=== PATIENT | female | born 1950 | race Caucasian/White ===

== ENCOUNTER → 2018-12-21 13:09 | Outpatient (CLI) | payer OTHER, MEDICARE, SELFPAY ==
--- NOTE | 2018-12-21 13:17 | RAD_ITS ---
STUDY: X-RAY - LUMBAR SPINE REASON FOR EXAM: Female, 68 years old. Chronic low back pain and right leg pain. TECHNIQUE: 5 view(s) of the lumbar spine were obtained including oblique views. COMPARISON: None FINDINGS: Normal lumbar lordosis. There is no substantial scoliosis. There is a normal alignment of the vertebrae. There is multilevel endplate spondylosis of the lumbar vertebrae. Mild disc space narrowing at the L3-L4 and L4-L5 levels. The soft tissue structures are unremarkable. RAD/L/S Spine Min 4 Views IMPRESSION: Degenerative changes of the spine, as detailed above. Electronically Signed: Nnamdi Miller MD at 12:45 EST , Service support ,
== END ==
LOC: RAD 13:14
PROVIDERS: Family Provider Family Medicine; PCP Family Medicine; Referring Provider Family Medicine; Visit Provider Family Medicine
DX: M54.5 Low back pain (principal); G89.29 Other chronic pain
CPT/HCPCS: 72110

== ENCOUNTER → 2021-11-21 | Outpatient (CLI) | payer MEDICARE, SELFPAY | END | disposition home or self-care (01) | PROVIDERS: PCP Family Medicine; Visit Provider Physician Assistant Medical | DX: Z20.822 Contact with and (suspected) exposure to COVID-19 (principal) | CPT/HCPCS: 87635; U0003; U0005 ==

== ENCOUNTER 2022-06-14 12:12 | Emergency (ER) | payer MEDICARE, SELFPAY ==
[2022-06-14 12:13] VITALS: BP 223/118; PULSE 101; RESP 16; TEMP 36.7; O2SAT 95; BMI 38.0
--- NOTE | 2022-06-14 12:38 | CT_ITS ---
STUDY: CT Abdomen And Pelvis W/O Contrast Injection 06/14/2022 2:18 PM REASON FOR EXAM: Female, 71 years old. ABDOMINAL PAIN abdominal pain Technologist Notes VAGINAL BLEEDING, PELVIC PAIN X 3 DAYS TECHNIQUE: Transaxial images were obtained without oral contrast, and without intravenous contrast. Individualized dose optimization techniques were used for this CT. COMPARISON: None. FINDINGS: There are atherosclerotic calcifications of visualized coronary arteries. The visualized portions of the heart are within normal limits. Unremarkable liver. Unremarkable gallbladder and extrahepatic biliary system. Unremarkable spleen. There is diffuse atrophy of the pancreas. There is a 77 x 62 x 68 mm, circumscribed, very low attenuation left adrenal mass (-105HU), consistent with an adrenal adenoma. Normal right adrenal gland. No acute findings of the right kidney. No acute findings of the left kidney. Unremarkable visualized stomach. Unremarkable small intestine. Unremarkable colon. The appendix is visualized and appears unremarkable. There are calcifications of the abdominal aorta. This is consistent for atherosclerotic disease. There is no abdominal aortic aneurysm. Unremarkable inferior vena cava. Subcentimeter mesenteric lymph nodes. Unremarkable urinary bladder. Normal visualized uterus. There is an umbilical hernia containing fat. Unremarkable osseous structures. CT/Abdomen/Pelvis without Cont IMPRESSION: (NOT LISTED IN ORDER OF SIGNIFICANCE) There is a 77 x 62 x 68 mm, circumscribed, very low attenuation left adrenal mass (-105HU), consistent with an adrenal adenoma. However, the lesion is very large. ACR White Paper guidelines (Katia et al. JACR 2017; 14(8):9976-5563) suggest the following. consider PET-CT. Also consider biochemical assays to determine functional status and exclude pheochromocytoma. Other findings as above. Electronically Signed: Colt Lowe MD at 14:41 EDT ,
--- NOTE | 2022-06-14 12:51 | ED.VIS.FEGU ---
HPI HPI - Female History of Present Illness Chief Complaint: Vag Bleeding Detail of Chief Complaint: Vaginal bleeding x3 days Informant: patient Narrative Narrative: Patient presents to the emergency department complaint of vaginal bleeding that started 3 days ago. Patient also states that she is having blood in the urine. Patient is passing some clots. She complains of right lower abdomen pain. Patient states that she saw her primary care physician because she thought she had some sciatica issue going on so she was started on meloxicam last week. Patient denies fevers or chills. She denies dysuria. Patient tells me that years ago she had a polyp removed from her cervix. Prior similar symptoms: No PFSH PFSH Medical History (Updated 06/14/22 @ 16:[address] Milla Mejia, DO) Diabetes mellitus Hypercholesteremia Hypertension Sciatica Home Medications acetaminophen 325 mg tablet (Tylenol) 650 mg PO Q6H PRN PRN Pain ##0 10/24/15 [Rx Last Taken Unknown] atorvastatin 10 mg tablet 1 tab PO DAILY 06/14/22 [History Last Taken Unknown] glimepiride 1 mg tablet 0.5 tab PO DAILY 06/14/22 [History Last Taken Unknown] meloxicam 7.5 mg tablet 1 tab PO DAILY 06/14/22 [History Last Taken Unknown] quinapril 40 mg tablet 1 tab PO DAILY 06/14/22 [History Last Taken Unknown] Allergy/AdvReac Type Severity Reaction Status Date / Time meperidine HCl [From Demerol] Allergy Rash Verified 06/14/22 12:15 Social History Smoking Status: Never smoker ROS ROS ED Review of Systems ROS Unobtainable: other Constitutional Constitutional ED: Reports lethargy; Denies chills, fever(s), sweats or weight loss Eyes Eyes: Denies blurry vision, change in vision or diplopia ENT ENT ED: Denies rhinorrhea or sore throat Cardiovascular Cardiovascular: Reports chest pain and racing heartbeat; Denies orthopnea Respiratory/Chest Respiratory/Chest: Reports dyspnea and dyspnea on exertion; Denies cough, orthopnea or sputum Gastrointestinal Gastrointestinal: Reports abdominal pain; Denies diarrhea, nausea or vomiting Genitourinary Genitourinary ED: Reports hematuria and other Details: Vaginal bleeding ; Denies dysuria or urinary frequency Musculoskeletal Musculoskeletal: Denies arthralgias, back pain, myalgias or neck pain Integumentary Denies abscess, Abrasions or rash Neurologic Neurologic: Denies headache(s) or weakness Psychiatric Psychiatric: Denies anxiety, depression or suicidal thoughts Endocrine Endocrinology: Denies polydipsia, polyphagia or polyuria Hematologic/Lymphatic Hematologic/Lymphatic: Denies easy bleeding, easy bruising or lymphadenopathy Allergic/Immunologic Allergic/Immunologic ED: Denies mouth swelling, tongue swelling or urticaria EXAM Physical Exam Const Vital Signs: 06/14/22 12:13 06/14/22 13:18 06/14/22 14:00 Temperature 98.1 F Temperature Source Temporal Pulse Rate 101 H 96 97 Pulse Rate [Lying] Pulse Rate [Sitting (for 1 minute prior to obtaining)] Pulse Rate [Standing (for 1 minute prior to obtaining)] Respiratory Rate 16 Blood Pressure 223/118 H 196/116 H 191/116 H Blood Pressure [Lying] Blood Pressure [Sitting (for 1 minute prior to obtaining)] Blood Pressure [Standing (for 1 minute prior to obtaining)] Blood Pressure Mean 153 142 141 Blood Pressure Mean [Lying] Blood Pressure Mean [Sitting (for 1 minute prior to obtaining)] Blood Pressure Mean [Standing (for 1 minute prior to obtaining)] Pulse Ox 95 Oxygen Delivery Method Room Air 06/14/22 15:03 Temperature Temperature Source Pulse Rate Pulse Rate [Lying] 97 Pulse Rate [Sitting (for 1 minute prior to obtaining)] 98 Pulse Rate [Standing (for 1 minute prior to obtaining)] 106 H Respiratory Rate Blood Pressure Blood Pressure [Lying] 190/100 H Blood Pressure [Sitting (for 1 minute prior to obtaining)] 197/106 H Blood Pressure [Standing (for 1 minute prior to obtaining)] 189/118 H Blood Pressure Mean Blood Pressure Mean [Lying] 130 Blood Pressure Mean [Sitting (for 1 minute prior to obtaining)] 136 Blood Pressure Mean [Standing (for 1 minute prior to obtaining)] 141 Pulse Ox Oxygen Delivery Method Positive well nourished and well developed General Appearance ED: well developed and NAD HEENT Reports TM's clear and moist mucous membranes normocephalic and atraumatic; Negative for trauma or tenderness Tympanic Membrane ED: Yes TM's clear Eyes PERRL and EOMs intact bilaterally General Eye ED: Negative for pale conjunctiva or scleral icterus Neck no lymphadenopathy, supple and no JVD General: Negative for tenderness Chest Wall inspection of chest normal and palpation of chest normal Chest: Negative for tenderness Resp normal respiratory effort and clear to auscultation bilaterally Effort and Inspection: Negative for respiratory distress or pain with movement Auscultation: Negative for rhonchi, wheezes or diminished lung sounds Cardio regular rate, regular rhythm, S1 normal heart sound, S2 normal heart sound and no murmurs Peripheral Pulses: pulses 2+ throughout GI normal to inspection, nondistended, normoactive bowel sounds, soft to palpation, non-tender, non-distended and no masses Back/Spine no CVA tenderness and no thoracic nor lumbar tenderness Extremity normal to inspection General Extremety ED: Negative for edema General Extremity: Negative for edema Neuro oriented x3, CN's II-XII intact bilaterally, no sensory deficits noted and gait normal Sensorium / Orientation: awake, alert, oriented to person, oriented to place and oriented to time Motor Exam: strength 5/5 throughout and strength abnormal Psych mental status grossly normal Skin no rashes or lesions noted and no wounds MDM MDM MDM Narrative Medical decision making narrative: The line established on arrival. Lab work-up unremarkable. CT scan of the abdomen pelvis obtained was read by radiology as 77 x 62 x 68 mm circumscribed low-attenuation left adrenal mass consistent with adrenal adenoma however lesion is very large. It was recommended patient have PET scan versus also biochemical assays to determine functional status and exclude pheochromocytoma. Patient does have elevated blood pressures here in the department and apparently 2 days ago her blood pressure was in the 160 systolic. It is unclear if she has some whitecoat hypertension as she is also been dealing with pain in her back and also recently started meloxicam for pain. I did discuss case with [employer] after obtaining a pelvic ultrasound that showed a possible endometrial mass and a fibroid uterus. Dr. Sal will see patient in the emergency department to discuss neck steps and outpatient biopsy. I will attempt to contact patient's primary care physician as well regarding the abnormal findings on CT of left adrenal adenoma rule out pheochromocytoma. We were unable to get a hold of Dr. Meeks and I did discuss case with oncology on-call Dr. Zendejas who recommended the patient follow-up with the primary care physician regarding these findings to have further testing performed or referral to endocrinology but did not feel this was an emergent finding. Patient is comfortable with plan at this point and she will monitor her blood pressures at home. Patient advised to return if chest pain, shortness of breath, persistent heavy bleeding, or condition should worsen anyway. Lab Data Attestation: I reviewed the patient's lab results. Labs: Laboratory Results - last 24 hr 06/14/22 06/14/22 06/14/22 13:07 13:07 13:15 WBC 8.6 RBC 5.36 Hgb 14.7 Hct 46.7 MCV 87.1 MCH 27.4 MCHC 31.5 L RDW Std Deviation 45.1 H RDW Coeff of [place] 14.2 Plt Count 314 MPV 9.6 Immature Gran % (Auto) 0.300 Neut % (Auto) 57.8 Lymph % (Auto) 31.9 [place] % (Auto) 8.6 Eos % (Auto) 0.8 Baso % (Auto) 0.6 Absolute Neuts (auto) 5.0 Absolute Lymphs (auto) 2.76 Nucleated RBC % 0 Sodium 143 Potassium 3.4 L Chloride 106 Carbon Dioxide 30.0 Anion Gap 7 BUN 12 Creatinine 0.73 Estim Creat Clear Calc 41.99 Est GFR (MDRD) Af Amer 102 Est GFR (MDRD) Non-Af 84 BUN/Creatinine Ratio 16.5 Glucose 130 H Calcium 9.6 Urine Color Red Urine Clarity Cloudy Urine pH 7.0 Ur Specific [place] 1.010 Urine Protein 500 H Urine Glucose (UA) Normal Urine Ketones 5 H Urine Occult Blood 250 H Urine Nitrite Negative Urine Bilirubin Negative Urine Urobilinogen Normal Ur Leukocyte Esterase 25 H Urine RBC 0-5 SEEN Urine WBC 0 SEEN Ur Squamous Epith Cells 0 SEEN Urine Bacteria 0 SEEN Urine Mucus 0 SEEN Blood Type Antibody Screen 06/14/22 13:42 WBC RBC Hgb Hct MCV MCH MCHC RDW Std Deviation RDW Coeff of [place]ita Plt Count MPV Immature Gran % (Auto) Neut % (Auto) Lymph % (Auto) [place] % (Auto) Eos % (Auto) Baso % (Auto) Absolute Neuts (auto) Absolute Lymphs (auto) Nucleated RBC % Sodium Potassium Chloride Carbon Dioxide Anion Gap BUN Creatinine Estim Creat Clear Calc Est GFR (MDRD) Af Amer Est GFR (MDRD) Non-Af BUN/Creatinine Ratio Glucose Calcium Urine Color Urine Clarity Urine pH Ur Specific [place] Urine Protein Urine Glucose (UA) Urine Ketones Urine Occult Blood Urine Nitrite Urine Bilirubin Urine Urobilinogen Ur Leukocyte Esterase Urine RBC Urine WBC Ur Squamous Epith Cells Urine Bacteria Urine Mucus Blood Type A POSITIVE Antibody Screen NEGATIVE Radiography Diagnostic Testing: Clinical Impression(s) from Imaging Studies Abdomen/Pelvis CT 06/14/22 12:38 IMPRESSION: (NOT LISTED IN ORDER OF SIGNIFICANCE) There is a 77 x 62 x 68 mm, circumscribed, very low attenuation left adrenal mass (-105HU), consistent with an adrenal adenoma. However, the lesion is very large. ACR White Paper guidelines (Katia et al. JACR 2017; 14(8):6309-3269) suggest the following. consider PET-CT. Also consider biochemical assays to determine functional status and exclude pheochromocytoma. Other findings as above. Electronically Signed: Colt Lowe MD at 14:41 EDT , ADDENDUM: 06/14/22 1532 IMPRESSION: undefined Transvaginal US 06/14/22 13:29 IMPRESSION: At the level of the endometrium, there is a mass measuring 36 x 40 mm. This may be an sub endometrial fibroid versus endometrial mass. Direct visualization is recommended. Fibroid uterus. Electronically Signed: Colt Lowe MD at 15:24 EDT , Discharge Plan Triage Chief Complaint: Vag Bleeding ED Provider: Milla Mejia Dx/Rx/DC Orders Clinical Impression: Abnormal vaginal bleeding, Fibroid uterus, Endometrial mass, Adrenal adenoma, Hypertension Instructions: ED Dysfunctional Uterine Bleeding, ED Hypertension, Established, ED Tumor, Uncertain Cause, ED Uterine Fibroids Prescriptions: No Action acetaminophen [Tylenol] 325 MG tablet 650 mg PO Q6H PRN PRN (Reason: Pain) Qty: 0 0RF atorvastatin 10 mg tablet 1 tab PO DAILY Label Comments: TAKE 1 TABLET BY MOUTH EVERY DAY quinapril 40 mg tablet 1 tab PO DAILY Label Comments: TAKE 1 TABLET BY MOUTH DAILY glimepiride 1 mg tablet 0.5 tab PO DAILY Label Comments: TAKE 1 TABLET BY MOUTH EVERY DAY IN THE MORNING meloxicam 7.5 mg tablet 1 tab PO DAILY Label Comments: TAKE 1 TABLET BY MOUTH IN THE MORNING FOR 7 DAYS. Primary Care Provider: Maykel Vegas Referrals: Maykel Vegas DO [Primary Care Provider] - 3-5 Days Zoila Sal DO [STAFF PHYSICIAN] - 3-5 Days Disposition Disposition: Home, Self Care
[2022-06-14 13:17] LABS: Absolute Lymphocyte Count 2.76 X10^3/uL (0.83-4.51); Basophil# 0.05 X10^3/uL; Basophil% 0.6 % (0-1); Eosinophil# 0.07 X10^3/uL; Eosinophils% 0.8 % (0-5); Hematocrit 46.7 % (37-47); Hemoglobin 14.7 g/dL (12.0-15.0); Lymphocyte # 2.76 X10^3/ul (0.83-4.51); Lymphocyte % 31.9 % (19-41); Mean Corp Hgb Conc 31.5 g/dL (32-36); Mean Corpuscular Hgb 27.4 pg (27.0-32.0); Mean Corpuscular Volume 87.1 fL (81-99); Mean Platelet Vol. 9.6 fl (6.2-12.0); Monocyte# 0.74 X10^3/uL; Monocyte% 8.6 % (0-10); NRBC Flagged by Analyzer 0 % (0-5); Neutrophil # 4.99 X10^3/uL (2.7-7.7); Neutrophil % 57.8 % (47-70); Platelet Count 314 K/mm3 (150-450); RBC Distribution Width CV 14.2 % (11.6-14.6); RBC Distribution Width SD 45.1 fl (35.1-43.9); Red Blood Count 5.36 M/mm3 (4.2-5.4); White Blood Count 8.6 K/mm3 (4.4-11.0)
[2022-06-14 13:18] VITALS: BP 196/116; PULSE 96
[2022-06-14 13:19] LABS: Bacteria 0 SEEN /hpf (None Seen); Mucous, Urine 0 SEEN /hpf (<or=2+); Squamous Epithelial Cells - UA 0 SEEN /hpf (5-10); White Blood Cells 0 SEEN /hpf (0-5)
[2022-06-14 13:24] LABS: Color, Urine Red (Yellow); Glucose, Dipstick Normal (Normal); Ketone-Dipstick 5 mg/dl (Negative); Leukocyte Esterase-Dipstick 25 /ul (Negative); Nitrite-Dipstick Negative (Negative); Occult Blood-Urine 250 /ul (Negative); Protein-Dipstick 500 mg/dl (Negative); Urine Bilirubin Dipstick Negative (Negative); Urine Clarity Cloudy (Clear); Urine Urobilinogen Normal (Normal)
[2022-06-14 13:28] LABS: Anion Gap 7 (5-15); BUN 12 mg/dL (7-18); BUN/Creat Ratio 16.5 RATIO (10-20); Calcium,Total 9.6 mg/dL (8.5-10.1); Chloride 106 mmol/L (98-107); Creatinine, Serum 0.73 mg/dL (0.55-1.02); EST Glomerular Filtration Rate 84 mL/min (>60); Est Glom Filt Rate - Afr Amer 102 mL/min (>60); Estimated Creatinine Clearance 41.99 ml/min; Glucose 130 mg/dL (74-106); Potassium 3.4 mmol/L (3.5-5.1); Sodium Level 143 mmol/L (136-145)
[2022-06-14 13:29] LABS: Red Blood Cells-Urine 0-5 SEEN /hpf (0-5)
--- NOTE | 2022-06-14 13:29 | US_ITS ---
STUDY: ULTRASOUND OF THE FEMALE PELVIS - COMPLETE REASON FOR EXAM: Female, 71 years old. vaginal bleeding, pelvic pain -- POST MENOPAUSAL BLEEDING X 3 DAYS TECHNIQUE: Endovaginal. Transvaginal US was obtained to better visualized the ovaries. COMPARISON: CT done earlier FINDINGS: The uterus is anteverted and is in a midline position. The uterus measures 9.2x 6.3 cm. Normal uterine cervix. At the level of the endometrium, there is a mass measuring 36 x 40 mm. This may be an sub endometrial fibroid versus endometrial mass. There is no demonstrated endometrial mass. There is demonstrated fibroids. Heterogeneous fibroid measures 21 mm. I.U.D. - The patient does not have an I.U.D. There is nonvisualization of the right ovary due to overlying bowel gas. There is nonvisualization of the left ovary due to overlying bowel gas. There is no fluid in the cul-de-sac. US/Transvaginal Non- IMPRESSION: At the level of the endometrium, there is a mass measuring 36 x 40 mm. This may be an sub endometrial fibroid versus endometrial mass. Direct visualization is recommended. Fibroid uterus. Electronically Signed: Colt Lowe MD at 15:24 EDT ,
[2022-06-14 14:00] VITALS: BP 191/116; PULSE 97
[2022-06-14 15:03] VITALS: BP 189/118; BP 190/100; BP 197/106; PULSE 106; PULSE 97; PULSE 98
[2022-06-14] MEDS: Acetaminophen 325 MG Tablet 650 MG PO (15:08)
--- NOTE | 2022-06-14 16:22 | CON.PCM_ITS ---
Assessment & Plan Assessment/Plan (1) Abnormal vaginal bleeding: PLAN: - Bleeding minimal currently on exam and patient reports it has lessened since being here. Hgb WNL. Discussed bleeding pre cautions and reasons to call with vaginal bleeding. No indication for progesterone treatment at this time for bleeding. (2) Endometrial mass: PLAN: - Discussed possible benign fibroid, hyperplasia, or uterine cancer. D iscussed need for hysteroscopy to assess cavity and endometrial sampling. Will need follow up in the office for this. Discussed possible in office Endosee with EMB or hysteroscopy, fibroid removal, D&C in the OR. Questions answered. HPI Consult Data Date of Consult: 06/14/22 HPI Narrative Reason for Consultation: vaginal bleeding HPI Narrative: DEANDRA GARZA, is a 71 F who presents pain. She states she went through [employer] around age 57. She states she would have bleeding with intercourse ever since going through menopause. Over the last 5 days she experienced heavier vaginal bleeding. She reports passing clots at home. She states since being here the vaginal bleeding seems to have lightened. She said she was never changing a pad every 1-2 hours at home. She has some right lower quadrant discomfort. Otherwise denies abdominal pain or cramping. She reports a known history of uterine fibroids. No prior pelvic surgery. Not currently established with a health type technician. History of 5 prior vaginal deliveries. [facility] Medical History (Updated 06/14/22 @ 16:[address] Milla Mejia, ) Diabetes mellitus Hypercholesteremia Hypertension Sciatica Home Medications acetaminophen 325 mg tablet (Tylenol) 650 mg PO Q6H PRN PRN Pain ##0 10/24/15 [Rx Last Taken Unknown] atorvastatin 10 mg tablet 1 tab PO DAILY 06/14/22 [History Last Taken Unknown] glimepiride 1 mg tablet 0.5 tab PO DAILY 06/14/22 [History Last Taken Unknown] meloxicam 7.5 mg tablet 1 tab PO DAILY 06/14/22 [History Last Taken Unknown] quinapril 40 mg tablet 1 tab PO DAILY 06/14/22 [History Last Taken Unknown] Allergy/AdvReac Type Severity Reaction Status Date / Time meperidine HCl [From Demerol] Allergy Rash Verified 06/14/22 12:15 Social History Smoking Status: Never smoker Physical Exam Const alert General Appearance: comfortable HEENT normocephalic Resp normal respiratory effort GI soft to palpation, non-tender and non-distended Lab / Micro Data Result Diagrams: 06/14/22 13:07 06/14/22 13:07 Labs: Laboratory Results - last 24 hr 06/14/22 13:07: WBC 8.6, RBC 5.36, Hgb 14.7, Hct 46.7, MCV 87.1, MCH 27.4, MCHC 31.5 L, RDW Std Deviation 45.1 H, RDW Coeff of [place] 14.2, Plt Count 314, MPV 9.6, Immature Gran % (Auto) 0.300, Neut % (Auto) 57.8, Lymph % (Auto) 31.9, [place] % (Auto) 8.6, Eos % (Auto) 0.8, Baso % (Auto) 0.6, Absolute Neuts (auto) 5.0, Absolute Lymphs (auto) 2.76, Nucleated RBC % 0 06/14/22 13:07: Sodium 143, Potassium 3.4 L, Chloride 106, Carbon Dioxide 30.0, Anion Gap 7, BUN 12, Creatinine 0.73, Estim Creat Clear Calc 41.99, Est GFR (MDRD) Af Amer 102, Est GFR (MDRD) Non-Af 84, BUN/Creatinine Ratio 16.5, Glucose 130 H, Calcium 9.6 06/14/22 13:15: Urine Color Red, Urine Clarity Cloudy, Urine pH 7.0, Ur Specific [place] 1.010, Urine Protein 500 H, Urine Glucose (UA) Normal, Urine Ketones 5 H , Urine Occult Blood 250 H, Urine Nitrite Negative, Urine Bilirubin Negative, Urine Urobilinogen Normal, Ur Leukocyte Esterase 25 H, Urine RBC 0-5 SEEN, Urine WBC 0 SEEN, Ur Squamous Epith Cells 0 SEEN, Urine Bacteria 0 SEEN, Urine Mucus 0 SEEN 06/14/22 13:42: Blood Type A POSITIVE, Antibody Screen NEGATIVE Radiology Impression Abdomen/Pelvis CT 06/14/22 12:38 IMPRESSION: (NOT LISTED IN ORDER OF SIGNIFICANCE) There is a 77 x 62 x 68 mm, circumscribed, very low attenuation left adrenal mass (-105HU), consistent with an adrenal adenoma. However, the lesion is very large. ACR White Paper guidelines (Katia et al. JACR 2017; 14(8):3308-7431) suggest the following. consider PET-CT. Also consider biochemical assays to determine functional status and exclude pheochromocytoma. Other findings as above. Electronically Signed: Colt Lowe MD at 14:41 EDT , ADDENDUM: 06/14/22 1532 IMPRESSION: undefined Transvaginal US 06/14/22 13:29 IMPRESSION: At the level of the endometrium, there is a mass measuring 36 x 40 mm. This may be an sub endometrial fibroid versus endometrial mass. Direct visualization is recommended. Fibroid uterus. Electronically Signed: Colt Lowe MD at 15:24 EDT ,
[2022-06-14 16:23] VITALS: BP 194/110; PULSE 98; RESP 18; O2SAT 96
== END 2022-06-14 16:29 | disposition home or self-care (01) ==
PROVIDERS: Emergency Provider Emergency Medicine; PCP Family Medicine; Visit Provider Emergency Medicine
DX: N93.9 Abnormal uterine and vaginal bleeding, unspecified (principal); E11.9 Type 2 diabetes mellitus without complications; D25.9 Leiomyoma of uterus, unspecified; D35.00 Benign neoplasm of unspecified adrenal gland; R19.09 Other intra-abdominal and pelvic swelling, mass and lump; E78.00 Pure hypercholesterolemia, unspecified; I10 Essential (primary) hypertension; Z79.84 Long term (current) use of oral hypoglycemic drugs; Z79.899 Other long term (current) drug therapy
CPT/HCPCS: 74176; 76830; 80048; 81001; 85025; 86850; 86900; 86901; 99285; A4216

== ENCOUNTER 2022-09-30 11:58 | Emergency (ER) | payer MEDICARE, SELFPAY ==
[2022-09-30 12:00] VITALS: BP 96/77; PULSE 115; RESP 27; TEMP 35.7; O2SAT 95; BMI 36.9
--- NOTE | 2022-09-30 12:23 | EX.ED.DYSGE1 ---
HPI History of Present Illness Chief Complaint: Chest Pain Narrative Narrative: Patient presents with generalized weakness, nausea, feeling lightheaded. She is status postchemotherapy for uterine cancer. She has no fever chills no cough or congestion she says it is difficult to take a deep breath but she does not have any chest pain. Sent in by her oncologist. [facility] Medical History Diabetes mellitus Hypercholesteremia Hypertension Sciatica Uterine cancer Home Medications acetaminophen 325 mg tablet (Tylenol) 650 mg PO Q6H PRN PRN Pain ##0 10/24/15 [Rx Last Taken Unknown] atorvastatin 10 mg tablet 1 tab PO DAILY 06/14/22 [History Last Taken Unknown] glimepiride 1 mg tablet 0.5 tab PO DAILY 06/14/22 [History Last Taken Unknown] meloxicam 7.5 mg tablet 1 tab PO DAILY 06/14/22 [History Last Taken Unknown] quinapril 40 mg tablet 1 tab PO DAILY 06/14/22 [History Last Taken Unknown] ondansetron 4 mg disintegrating tablet 4 mg PO Q8H #30 tabs 09/30/22 [Rx Last Taken Unknown] Allergy/AdvReac Type Severity Reaction Status Date / Time meperidine HCl [From Demerol] Allergy Rash Verified 06/14/22 12:15 Surgical History H/O: hysterectomy Social History Smoking Status: Never smoker ROS ROS ED ROS Narrative Past medical history: Reviewed, includes cancer postchemotherapy. Medications: Reviewed Social history: Noncontributory Review of systems: All systems negative except as indicated General: No fever. Generalized weakness Eyes: No visual changes ENT: No upper airway congestion, normal voice Neck: No neck pain Cardiovascular: No chest pain Respiratory: Difficult taking deep breath. No cough Gastrointestinal: No abdominal pain she does have nausea and vomiting. Genitourinary: No dysuria Musculoskeletal: Some myalgias. Skin: No rash Neurological: No memory loss, confusion or any focal weakness Psych: No recent behavioral changes Hematologic: No easy bleeding or easy bruising EXAM Physical Exam Narrative Exam Narrative: Physical exam General: Patient appears relatively comfortable. She appears chronically ill but does not appear in significant distress Head: Normocephalic, Atraumatic Eyes: Conjunctiva not pale ENT: Dry mucous membranes Neck: Supple, Nontender, No lymphadenopathy Cardiovascular: Regular tachycardia Respiratory: No distress, CTA bilaterally Abdomen: Soft, Nontender, Nondistended Back: Nontender, Normal Inspection. Negative for: CVA tenderness Extremities: Nontender, No edema Skin: Normal color, No rash Neurological: Alert, Normal Strength, Normal Sensation Psychological: Normal affect Const Vital Signs: 09/30/22 12:00 Temperature 96.2 F L Temperature Source Temporal Pulse Rate 115 H Respiratory Rate 27 H Blood Pressure 96/77 Blood Pressure Mean 83 Pulse Ox 95 Oxygen Delivery Method Room Air MDM MDM MDM Narrative Medical decision making narrative: Patient's work-up is unremarkable she was given the IV fluids and significantly improved. I believe she can be safely discharged home. I will discharge with Zofran since she only has Phenergan at home. Lab Data Labs: Laboratory Results - last 24 hr 09/30/22 09/30/22 12:40 12:40 WBC 7.1 RBC 5.69 H Hgb 15.7 H Hct 48.0 H MCV 84.4 MCH 27.6 MCHC 32.7 RDW Std Deviation 41.0 RDW Coeff of Elenita 13.3 Plt Count 304 MPV 10.5 Immature Gran % (Auto) 0.600 Neut % (Auto) 64.9 Lymph % (Auto) 30.0 Reynolds % (Auto) 1.3 Eos % (Auto) 2.8 Baso % (Auto) 0.4 Absolute Neuts (auto) 4.6 Absolute Lymphs (auto) 2.14 Nucleated RBC % 0.4 Sodium 135 L Potassium 3.2 L Chloride 99 Carbon Dioxide 27.0 Anion Gap 9 BUN 35 H Creatinine 1.11 H Estim Creat Clear Calc 37.30 Est GFR (MDRD) Af Amer 62 Est GFR (MDRD) Non-Af 52 L BUN/Creatinine Ratio 31.5 H Glucose 186 H Calcium 9.5 Total Bilirubin 0.90 AST 32 ALT 64 H Alkaline Phosphatase 84 Troponin I High Sens 7 Total Protein 7.8 Albumin 3.4 Globulin 4.4 H Albumin/Globulin Ratio 0.8 L Radiography Diagnostic Testing: Clinical Impression(s) from Imaging Studies Chest CTA 09/30/22 12:25 IMPRESSION: No evidence of pulmonary embolism. No pulmonary consolidation is seen. Electronically Signed: Nnamdi Miller MD at 14:06 EST , Discharge Plan Triage Chief Complaint: Chest Pain ED Provider: Watson Shine Dx/Rx/DC Orders Clinical Impression: Post chemo evaluation, Dehydration Instructions: Dehydration Prescriptions: New ondansetron 4 mg tablet,disintegrating 4 mg PO Q8H Qty: 30 0RF No Action acetaminophen [Tylenol] 325 MG tablet 650 mg PO Q6H PRN PRN (Reason: Pain) Qty: 0 0RF atorvastatin 10 mg tablet 1 tab PO DAILY Label Comments: TAKE 1 TABLET BY MOUTH EVERY DAY quinapril 40 mg tablet 1 tab PO DAILY Label Comments: TAKE 1 TABLET BY MOUTH DAILY glimepiride 1 mg tablet 0.5 tab PO DAILY Label Comments: TAKE 1 TABLET BY MOUTH EVERY DAY IN THE MORNING meloxicam 7.5 mg tablet 1 tab PO DAILY Label Comments: TAKE 1 TABLET BY MOUTH IN THE MORNING FOR 7 DAYS. Primary Care Provider: Maykel Vegas Referrals: Maykel Vegas DO [Primary Care Provider] - 3-5 Days Disposition Disposition: Home, Self Care
--- NOTE | 2022-09-30 12:25 | CT_ITS ---
STUDY: CTA CHEST REASON FOR EXAM: Female, 72 years old. Chest pain and shortness of breath. History of uterine cancer. Chemotherapy. RADIATION DOSAGE (If Supplied By Facility): CTDIvol = ( 11.24 ) mGy, DLP = ( 404.58 ) mGycm TECHNIQUE: The examination was performed with the intravenous administration of IV 100mL Isovue-370. Post-processing of the angiographic images was performed, with multiplanar reformation and 3D reconstruction. Individualized dose optimization techniques were used for this CT. COMPARISON: None. FINDINGS: Normal enhancement of the main pulmonary artery and right and left pulmonary arteries. Normal enhancement of the bilateral peripheral pulmonary arteries. There is no demonstrated pulmonary embolism. Normal thoracic aorta and visualized great vessels. There is no demonstrated aortic dissection. Normal heart and pericardium. No coronary artery calcification is seen. Normal mediastinum. Normal hilar regions. Normal visualized trachea and bronchi. The lungs are well expanded. Normal pulmonary parenchyma. Normal pleura. Normal chest wall structures. There are degenerative changes of thoracic spine. Fatty infiltration of the liver. CT/CTA Chest W/WO Contrast IMPRESSION: No evidence of pulmonary embolism. No pulmonary consolidation is seen. Electronically Signed: Nnamdi Miller MD at 14:06 EST ,
[2022-09-30] MEDS: 0.9% Normal Saline 1,000 ML 1000 ML IV (12:36)
[2022-09-30 12:55] LABS: Absolute Lymphocyte Count 2.14 X10^3/uL (0.83-4.51); Absolute Neutrophil Count 4.6 X10^3/uL (2.0-7.7); Basophil# 0.03 X10^3/uL; Basophil% 0.4 % (0-1); Eosinophils% 2.8 % (0-5); Hemoglobin 15.7 g/dL (12.0-15.0); Lymphocyte # 2.14 X10^3/ul (0.83-4.51); Mean Corp Hgb Conc 32.7 g/dL (32-36); Mean Corpuscular Hgb 27.6 pg (27.0-32.0); Mean Corpuscular Volume 84.4 fL (81-99); Mean Platelet Vol. 10.5 fl (6.2-12.0); Monocyte# 0.09 X10^3/uL; Monocyte% 1.3 % (0-10); NRBC Flagged by Analyzer 0.4 % (0-5); Neutrophil # 4.64 X10^3/uL (2.7-7.7); Neutrophil % 64.9 % (47-70); Platelet Count 304 K/mm3 (150-450); RBC Distribution Width CV 13.3 % (11.6-14.6); Red Blood Count 5.69 M/mm3 (4.2-5.4); White Blood Count 7.1 K/mm3 (4.4-11.0)
[2022-09-30 13:09] LABS: ALB/GLOB Ratio 0.8 RATIO (0.9-2.4); AST(SGOT) 32 U/L (15-37); Alanine Aminotransfer ALT/SGPT 64 U/L (13-56); Albumin, Serum 3.4 g/dL (3.2-5.0); Alkaline Phosphatase 84 U/L (45-117); Anion Gap 9 (5-15); BUN 35 mg/dL (7-18); BUN/Creat Ratio 31.5 RATIO (10-20); Calcium,Total 9.5 mg/dL (8.5-10.1); Chloride 99 mmol/L (98-107); Creatinine, Serum 1.11 mg/dL (0.55-1.02); EST Glomerular Filtration Rate 52 mL/min (>60); Est Glom Filt Rate - Afr Amer 62 mL/min (>60); Globulin 4.4 g/dL (2.2-4.2); Glucose 186 mg/dL (74-106); Potassium 3.2 mmol/L (3.5-5.1); Protein, Total 7.8 g/dL (6.4-8.2); Sodium Level 135 mmol/L (136-145); Troponin-I HS 7 pg/mL (3.0-54.0)
[2022-09-30 14:10] LABS: Mucous, Urine 0 SEEN /hpf (<or=2+)
[2022-09-30 14:14] LABS: Color, Urine Yellow (Yellow); Glucose, Dipstick Normal (Normal); Ketone-Dipstick Negative (Negative); Leukocyte Esterase-Dipstick 25 /ul (Negative); Nitrite-Dipstick Positive (Negative); Occult Blood-Urine 10 /ul (Negative); Protein-Dipstick 30 mg/dl (Negative); Urine Bilirubin Dipstick Negative (Negative); Urine Clarity Sl. Cloudy (Clear); Urine Urobilinogen Normal (Normal); Urine pH 6.5 (5.0 - 8.0)
[2022-09-30 14:27] VITALS: BP 138/77; PULSE 64; RESP 15; O2SAT 98
[2022-09-30 14:30] LABS: Bacteria 2+ /hpf (None Seen); Red Blood Cells-Urine 0-5 SEEN /hpf (0-5); Squamous Epithelial Cells - UA 0-5 SEEN /hpf (5-10); White Blood Cells 0-5 SEEN /hpf (0-5)
== END 2022-09-30 14:31 | disposition home or self-care (01) ==
PROVIDERS: Emergency Provider Emergency Medicine; PCP Family Medicine; Visit Provider Emergency Medicine
DX: E86.0 Dehydration (principal); C55 Malignant neoplasm of uterus, part unspecified; E11.9 Type 2 diabetes mellitus without complications; Z92.21 Personal history of antineoplastic chemotherapy; I10 Essential (primary) hypertension; E78.00 Pure hypercholesterolemia, unspecified
CPT/HCPCS: 71275; 80053; 81001; 84484; 85025; 87428; 93005; 96360; 96361; 99284; Q9967